=== PATIENT | female | born 1940 | race Caucasian/White ===

== ENCOUNTER 2018-06-21 17:10 | Emergency (ER) | payer MEDICARE ==
--- NOTE | 2018-06-21 17:51 | Emergency Department Record ---
History of Present Illness - General Chief Complaint: Abdominal Pain Stated Complaint: ABDOMINAL PAIN Time Seen by Provider: 06/21/18 17:20 Source: Patient Mode of Arrival: Ambulatory - History of Present Illness Initial Comments: abdominal pain started one month ago but much worse yesterday and her told her to go to the ED. Dr. Moreland told her to go to the Ed Primary is Dr. Martinez. No vomiting or diarrhea and the pain is across the upper abdomin and right lower quad. Previous hysterectomy 1979 and appendectomy. 1944. Last colonoscopy 5 years ago. No chest pain or dyspnea and PMH of [place] 3 years ago with stents at [facility] dr. Librado FELTON Complaint: Abdominal pain Onset/Timin -: Month(s) Location: Diffuse Severity: Moderate Severity scale (1-10): 5 Quality: Burning Consistency: Constant Improves With: Nothing Worsens With: Nothing Associated Symptoms: Denies other symptoms - Related Data Home Medications Medication Instructions Recorded Confirmed Last Taken Atorvastatin Calcium [Lipitor] 40 mg PO DAILY 06/21/18 06/21/18 06/21/18 Carvedilol [Coreg] 12.5 mg PO DAILY 06/21/18 06/21/18 06/21/18 Cholecalciferol (Vitamin D3) 1 cap PO DAILY 06/21/18 06/21/18 06/21/18 [Vitamin D3] Lisinopril 20 mg PO DAILY 06/21/18 06/21/18 06/21/18 Previous Rx's Medication Instructions Recorded Hydrocodone/Acetaminophen [[place] 1 each PO Q6HR #12 tablet 06/21/18 5-325 Tablet] Allergies Allergy/AdvReac Type Severity Reaction Status Date / Time No Known Drug Allergies Allergy Verified 06/21/18 17:29 Travel Screening - Travel/Exposure Within Last 30 Days Have you traveled within the last 30 days?: No - Travel/Exposure Within Last Year Have you traveled outside the [place] in the last year?: No - Additonal Travel Details Have you been exposed to anyone with a communicable illness?: No - Travel Symptoms Symptom Screening: None Review of Systems Reviewed: No additional complaints except as noted below Constitutional: Reports: As per HPI. Denies: Chills, Fever, Malaise, Night sweats, Weakness, Weight change Eyes: Reports: As per HPI. Denies: Eye discharge, Eye pain, Photophobia, Vision change ENT: Reports: As per HPI. Denies: Congestion, Dental pain, Ear pain, Epistaxis , Hearing loss, Throat pain Respiratory: Reports: As per HPI. Denies: Cough, Dyspnea, Hemoptysis, Stridor, Wheezes Cardiovascular: Reports: As per HPI. Denies: Arrhythmia, Chest pain, Dyspnea on exertion, Edema, Murmurs, Orthopnea, Palpitations, Paroxysmal nocturnal dyspnea, Rheumatic Fever, Syncope Endocrine: Reports: As per HPI. Denies: Fatigue, Heat or cold intolerance, Polydipsia, Polyuria Gastrointestinal: Reports: As per HPI, Abdominal pain. Denies: Constipation, Diarrhea, Hematemesis, Hematochezia, Melena, Nausea, Vomiting Genitourinary: Reports: As per HPI. Denies: Abnormal menses, Discharge, Dyspareunia, Dysuria, Frequency, Hematuria, Incontinence, Retention, Urgency Musculoskeletal: Reports: As per HPI. Denies: Arthralgia, Back pain, Gout, Joint swelling, Myalgia, Neck pain Skin: Reports: As per HPI. Denies: Bruising, Change in color, Change in hair/ nails, Lesions, Pruritus, Rash Neurological: Reports: As per HPI. Denies: Abnormal gait, Confusion, Headache, Numbness, Paresthesias, Seizure, Tingling, Tremors, Vertigo, Weakness Psychiatric: Reports: As per HPI. Denies: Anxiety, Auditory hallucinations, Depression, Homicidal thoughts, Suicidal thoughts, Visual hallucinations Hematological/Lymphatic: Reports: As per HPI. Denies: Anemia, Blood Clots, Easy bleeding, Easy bruising, Swollen glands Past Medical History - SOCIAL HISTORY Smoking Status: Never smoker Alcohol Use: None Drug Use: None - RESPIRATORY Hx Respiratory Disorders: No - CARDIOVASCULAR Hx Cardio Disorders: Yes Hx Hypertension: Yes Comment:: High cholesterol - NEURO Hx Neuro Disorders: No - GI Hx GI Disorders: Yes Comment:: Chronic constipation - Hx Genitourinary Disorders: No - ENDOCRINE Hx Endocrine Disorders: No - MUSCULOSKELETAL Hx Musculoskeletal Disorders: Yes Hx Arthritis: Yes - PSYCH Hx Psych Problems: No - HEMATOLOGY/ONCOLOGY Hx Hematology/Oncology Disorders: No Family Medical History Any Significant Family History?: No Physical Exam - General General Appearance: Alert, Oriented x3, Cooperative, Mild distress - Head Head exam: Normal inspection - Eye Eye exam: Normal appearance, PERRL Pupils: Normal accommodation - ENT ENT exam: Normal exam, Mucous membranes moist, Normal external ear exam, Normal orophraynx, TM's normal bilaterally Ear exam: Normal external inspection. negative: External canal tenderness Nasal Exam: Normal inspection. negative: Discharge, Sinus tenderness Mouth exam: Normal external inspection, Tongue normal Teeth exam: Normal inspection. negative: Dental caries Throat exam: Normal inspection. negative: Tonsillar erythema, Tonsillar exudate - Neck Neck exam: Normal inspection, Full ROM. negative: Tenderness - Respiratory Respiratory exam: Normal lung sounds bilaterally. negative: Respiratory distress - Cardiovascular Cardiovascular Exam: Regular rate, Normal rhythm, Normal heart sounds - GI/Abdominal GI/Abdominal exam: Soft, Normal bowel sounds, Guarding, Tenderness (upper abd and right lower quad). negative: Rebound, Rigid - Rectal Rectal exam: Deferred - exam: Deferred - Extremities Extremities exam: Normal inspection, Full ROM, Normal capillary refill. negative: Tenderness - Back Back exam: Reports: Normal inspection, Full ROM. Denies: Muscle spasm, Rash noted, Tenderness - Neurological Neurological exam: Alert, Normal gait, Oriented X3, Reflexes normal - Psychiatric Psychiatric exam: Normal affect, Normal mood - Skin Skin exam: Dry, Intact, Normal color, Warm Course Vital Signs 06/21/18 17:32 Temperature 97.8 F Pulse Rate 59 L Respiratory 18 Rate Blood Pressure 178/70 Pulse Ox 97 - Reevaluation(s) Reevaluation #1: over to Dr. Calixto pending CT of abdomen/pelvis 06/21/18 18:49 Medical Decision Making - Lab Data Result diagrams: 06/21/18 18:10 06/21/18 18:10 Disposition Clinical Impression: Biliary colic, Elevated lipase Abdominal pain Qualifiers: Abdominal location: upper abdomen, unspecified Qualified Code(s): R10.10 - Upper abdominal pain, unspecified Disposition: Home, Self-Care Condition: (1) Good Instructions: Biliary Colic (ED) Additional Instructions: follow up with family Dr in 2 days to get a referral to surgery for Gall bladder disease and an ultrasound avoid greasy and fatty foods norco 5 mg one every 6 hours as needed for pain Prescriptions: Hydrocodone/Acetaminophen [[place] 5-325 Tablet] 1 each PO Q6HR #12 tablet Forms: Patient Portal Access Quality - Blood Pressure Screening Does Patient Have Any of the Following: No Blood Pressure Classification: Hypertensive Reading Systolic Measurement: 151 Diastolic Measurement: 64
[2018-06-21] MEDS ORDERED: 0.9 % SODIUM CHLORIDE 1000ML 1,000 ML IV PRN (17:53)
[2018-06-21 18:15] LABS: BASO % 0.3 % (0-6); EOS % 3.6 % (0-6); GRAN % 53.9 % (47-80); HEMATOCRIT 41.6 % (35.0-47.0); HEMOGLOBIN 13.4 gm/dl (11.6-16.0); LYMPH % 33.9 % (16-45); MEAN CELL VOLUME 99.3 fl (81-97); MEAN CORPUSCULAR HGB CONC 32.2 g/dl (32-36); MONO % 8.3 % (0-9); PLATELET COUNT 277 K/uL (130-400); RED BLOOD COUNT 4.19 M/uL (3.80-5.40); WHITE BLOOD COUNT W/O DIFF 6.6 K/uL (4.2-12.2)
[2018-06-21 18:16] LABS: URINE APPEARANCE CLEAR; URINE BILIRUBIN NEGATIVE (NEGATIVE); URINE BLOOD NEGATIVE (NEGATIVE); URINE COLOR YELLOW; URINE GLUCOSE (UA) NEGATIVE (NEGATIVE); URINE KETONE NEGATIVE (NEGATIVE); URINE LEUKOCYTE ESTERASE MODERATE (NEGATIVE); URINE NITRITE NEGATIVE (NEGATIVE); URINE PROTEIN NEGATIVE (NEGATIVE); URINE UROBILINOGEN 0.2 E.U./dL (0.20 - 1.00)
[2018-06-21 18:29] LABS: BLOOD UREA NITROGEN 13 mg/dL (8-23); CREATININE 1.1 mg/dL (0.5-0.9); EST GLOMERULAR FILTRATION RATE 51 mL/min; URINE BACTERIA 2+; URINE RBC 0 - 2 (NONE SEEN)
[2018-06-21 18:30] LABS: TOTAL PROTEIN 7.5 g/dL (6.6-8.7)
[2018-06-21 18:32] LABS: GLUCOSE,RANDOM 95 mg/dL (74-109)
[2018-06-21 18:34] LABS: ALT/SGPT 8 U/L (<33)
[2018-06-21 18:35] LABS: ALKALINE PHOSPHATASE 74 U/L (35-104); AST/SGOT 16 U/L (10.0-35.0); BILIRUBIN,DIRECT < 0.2 mg/dL (0-0.3); LIPASE 123 U/L (13-60)
[2018-06-21] MEDS ORDERED: HYDROCODONE/APAP 5/325MG TABLET PO ONE (19:39)
--- NOTE | 2018-06-22 18:07 | CT SCAN REPORT ---
EXAM: CT SCAN ABDOMEN/PELVIS WO CONTRAST HISTORY: RIGHT-SIDED ABDOMINAL PAIN FOR ONE MONTH. PRIOR APPENDECTOMY AND HYSTERECTOMY. TECHNIQUE: Noncontrast CT of the abdomen and pelvis. COMPARISON: None. FINDINGS: Calcified granulomata in both lung bases. Tiny calcified granulomata in the liver and spleen. Low-attenuation 6 mm lesion in the inferior right hepatic lobe, too small to further characterize but likely representing a cyst or hemangioma in the absence of known malignancy. Unremarkable appearance of the adrenal glands and pancreas. Bilateral renal cortical atrophy. Exophytic 6.3 cm simple fluid attenuation cyst arising from the left kidney. No renal calculi. No hydronephrosis. Urinary bladder only minimally distended, not well-assessed. No significant focal colonic thickening or inflammatory changes. Appendix is not visualized. Tiny hiatal hernia. Stomach and small bowel are nondilated. No free air or free fluid seen in the abdomen or pelvis. Aortoiliac arterial access is tortuous and calcified, with mild ectasia of the infrarenal abdominal aorta, measuring up to 2.4 cm in transverse diameter. Uterus is absent. No focal adnexal abnormality detected. Prominent multilevel lumbar spine degenerative changes with evidence of disc degeneration and facet arthrosis. Bilateral femoral acetabular arthrosis. IMPRESSION: 1. NO DEFINITE ACUTE ABDOMINAL OR PELVIC FINDINGS. 2. EVIDENCE OF HEALED CHRONIC GRANULOMATOUS DISEASE WITH CALCIFIED GRANULOMATA IN BOTH LUNGS WELL THE LIVER AND SPLEEN. 3. SMALL INCIDENTAL LOW-ATTENUATION LIVER LESION, TOO SMALL TO FURTHER CHARACTERIZE BUT LIKELY REPRESENTING A CYST OR HEMANGIOMA IN THE ABSENCE OF KNOWN PRIMARY MALIGNANCY. 4. INCIDENTAL PROMINENT LEFT RENAL CORTICAL CYST. BILATERAL RENAL CORTICAL ATROPHY. 5. ADDITIONAL INCIDENTAL AND CHRONIC FINDINGS, DESCRIBED IN THE BODY OF THE REPORT. JOB NUMBER: [id number] [facility]
== END 2018-06-21 19:58 | disposition home or self-care (01) ==
LOC: ER 17:10
DX: K80.50 Calculus of bile duct without cholangitis or cholecystitis without obstruction (principal); R74.8 Abnormal levels of other serum enzymes; R10.84 Generalized abdominal pain; I10 Essential (primary) hypertension; I25.2 Old myocardial infarction
CPT/HCPCS: 74176; 80048; 80076; 81001; 83690; 85025; 99284